=== PATIENT | male | born 1995 | race African-American/Black ===

== ENCOUNTER 2017-05-09 22:05 | Emergency (ER) | payer OTHER ==
--- NOTE | ~2017-05-09 | CT71 ---
[facility] A Service of [facility] RADIOLOGY TEXT RESULTS PATIENT: RAIMUNDO LUZ LOCATION: SED : [birth year] UNIT #: [id number] AGE: [address]: Donis Jose MD SEX: M ORDER DR: [id number] [place] [id number] MR#: [id number] Acc #: [id number] NAME: RAIMUNDO LUZ : 1995 SEX: M STUDY DATE/TIME: 05/09/2017 22:53 UNIT: SED ROOM: STUDY DESCRIPTION: CT Head Wo Contrast Attending Physician: Donis Jose M.D. Ordering Physician: Donis Jose M.D. MEDICAL IMAGING REPORT This report is preliminary unless electronic signature is present. EXAM CT head without contrast INDICTION Fell playing basketball with head injury. Now with vomiting and dizziness. This happened two hours earlier, also laceration on right side of head. The CT exam was performed with one or more of the following radiation dose reduction techniques: automatic exposure control, adjustment of mA and/or kV according to patient size, and iterative reconstruction. FINDINGS Unenhanced images were obtained from the brain. The ventricles and subarachnoid spaces are normal. There are no masses or extraaxial fluid collections or hemorrhage. There is a scalp laceration in the right parietal region. IMPRESSION There is some lateral soft tissue swelling in the scalp with what appears to be a laceration. The brain and skull are normal. FINDINGS Dictated by... Alfredo Alonso M.D. [facility] A Service of [facility] RADIOLOGY TEXT RESULTS PATIENT: RAIMUNDO LUZ LOCATION: SED : [birth year] UNIT #: [id number] AGE: [address]: Donis Jose MD SEX: M ORDER DR: THIS IS AN ELECTRONICALLY VERIFIED REPORT Alfredo Alonso M.D. at 05/10/2017 12:39 PM LOLY/valeriano TD: 05/10/2017 09:17 JOB #: [id number] MEDICAL IMAGING REPORT Page 1 of 1
== END 2017-05-10 00:10 | disposition home or self-care (01) ==
LOC: SED 22:05
DX: S06.0X0A Concussion without loss of consciousness, initial encounter (principal); S01.01XA Laceration without foreign body of scalp, initial encounter; S01.81XA Laceration without foreign body of other part of head, initial encounter; Z23 Encounter for immunization; W18.30XA Fall on same level, unspecified, initial encounter; Y93.67 Activity, basketball
CPT/HCPCS: 70450; 90471; 90715; 99283

== ENCOUNTER 2017-05-14 18:00 | Emergency (ER) | payer OTHER | END 2017-05-14 18:25 | disposition home or self-care (01) | LOC: SED 18:00 | DX: S01.01XD Laceration without foreign body of scalp, subsequent encounter (principal) | CPT/HCPCS: 99281 ==

== ENCOUNTER 2017-05-18 14:25 | Emergency (ER) | payer OTHER | END 2017-05-18 15:30 | disposition home or self-care (01) | LOC: SED 14:25 | DX: S01.01XD Laceration without foreign body of scalp, subsequent encounter (principal); S01.111D Laceration without foreign body of right eyelid and periocular area, subsequent encounter | CPT/HCPCS: 99281 ==